=== PATIENT | female | born 1980 | race Two or more races ===

== ENCOUNTER 2022-08-13 11:24 | Emergency (ER) | payer MEDICAID ==
[~2022-08-13] VITALS: Ht 152.4 cm; Wt 82.6 kg
--- NOTE | 2022-08-13 11:40 | NUR ---
Dr Lozada at the bedside for MSE.
[2022-08-13] MEDS ORDERED: METOCLOPRAMIDE HCL 10 MG/2 ML VIAL IV ONE (11:45)
[2022-08-13] MEDS ORDERED: IV NORMAL SALINE 1000 ML BAG IV ONE (11:45)
[2022-08-13] MEDS ORDERED: METOCLOPRAMIDE HCL 10 MG/2 ML VIAL ONE (11:55)
[2022-08-13 12:02] LABS: HEMATOCRIT 41.1 % (31.2-41.9); MEAN CORPUSCULAR HEMOGLOBIN 29.3 uug (24.7-32.8); PLATELET COUNT (AUTO) 220 K/uL (179-408)
[2022-08-13 12:04] LABS: *URINE HCG, QUAL NEGATIVE (NEGATIVE)
[2022-08-13 12:15] LABS: *BILIRUBIN,URIN NEGATIVE (NEGATIVE); *BLOOD, URINE 1+ (NEGATIVE); *CLARITY,URINE SLIGHTLY CLOUDY (CLEAR); *COLOR,URINE YELLOW (YELLOW); *KETONES,URINE NEGATIVE (NEGATIVE); *UROBILINOGEN,URINE 0.2 E.U./dl (NORMAL); LEUKOCYTE ESTERASE ,URINE NEGATIVE (NEGATIVE); NITRITE, URINE NEGATIVE (NEGATIVE); PH,URINE 6.5 (5.0-8.0); UGLUCOSE NEGATIVE (NEGATIVE)
[2022-08-13 12:23] LABS: BILIRUBIN,DIRECT 0.1 mg/dL (0.0-0.2); BILIRUBIN,TOTAL 0.6 mg/dL (0.2-1.0); CREATININE 0.8 mg/dL (0.6-1.3); POTASSIUM 3.6 mmol/L (3.5-5.1)
[2022-08-13 12:24] LABS: BACTERIA,URINE FEW /HPF (NONE SEEN); SQUAMOUS EPITHELIAL CELL,UR MANY /HPF (NONE SEEN); WBC,URINE NONE SEEN /HPF (0-3)
[2022-08-13 12:24] LABS: TOTAL PROTEIN, SERUM 6.8 g/dL (6.4-8.2)
[2022-08-13] MEDS ORDERED: IBUPROFEN 600 MG TABLET ONE (13:12)
[2022-08-13] MEDS ORDERED: IBUPROFEN 600 MG TABLET PO ONE (13:15)
[2022-08-13] MEDS ORDERED: ONDA4TAB5 PO (13:17)
--- NOTE | 2022-08-13 13:25 | NUR ---
IV removed. Catheter intact and site benign. Pressure and 4x4 gauze applied to site. No bleeding noted.
[2022-08-13 13:26] VITALS: BP 120/70
--- NOTE | 2022-08-13 13:26 | NUR ---
Patient discharged to home in stable condition. Written and verbal after care instructions given. Patient verbalizes understanding of instructions. Stressed follow up or return to ER for worsening s/s.
== END 2022-08-13 13:40 | disposition home or self-care (01) ==
LOC: ER 11:24
DX: B34.9 Viral infection, unspecified (principal)
CPT/HCPCS: 36415; 83690; 84703; 85025; 87400; A4663; J2765; J7040